=== PATIENT | female | born 1995 | race Caucasian/White ===

== ENCOUNTER 2017-10-31 22:30 | Emergency (ER) | payer SELFPAY ==
[2017-11-01] MEDS ORDERED: HYDROCODONE/ACETAMINOPHEN 5-325 MG TABLET PO ONE (00:20)
--- NOTE | 2017-11-01 00:43 | ER Document Report ---
ED General - General Chief Complaint: Abdominal Pain Stated Complaint: ABDOMINAL PAIN Time Seen by Provider: 11/01/17 00:10 Notes: Patient is a 22-year-old female presents with complaint of abdominal pain and some darker, discharge from vaginal area. She says it looks more like old blood. She says her menstrual periods are very regular. She says sometimes she has severe pain in her lower pelvic region whenever she has her periods. She says it feels like that except worse than typical. No vomiting. No diarrhea. No fevers. No recent injuries or traumas to the abdomen. She says that she may have had a miscarriage back in July. She did not follow-up after this. She has not recently checked a test. No other complaints at this time. TRAVEL OUTSIDE OF THE [place] IN LAST 30 DAYS: No - Related Data Allergies/Adverse Reactions: No Known Allergies Allergy (Unverified 03/28/16 22:13) Past Medical History - Social History Smoking Status: Unknown if Ever Smoked Frequency of alcohol use: None Drug Abuse: None Family History: Reviewed & Not Pertinent - Immunizations Hx Diphtheria, Pertussis, Tetanus Vaccination: Yes Review of Systems - Review of Systems Notes: My Normal Review Basic REVIEW OF SYSTEMS: CONSTITUTIONAL : Denies fever, chills, or sweats. Denies recent illness. RESPIRATORY: Denies cough, cold, or chest congestion. Denies shortness of breath, difficulty breathing, or wheezing. GASTROINTESTINAL: Lower abdominal cramping. GENITOURINARY: Some dysuria. FEMALE GENITOURINARY: Pelvic pain. MUSCULOSKELETAL: Denies neck or back pain or joint pain or swelling. SKIN: Denies rash or skin lesions. NEUROLOGICAL: Denies altered mental status or loss of consciousness. Denies headache. Denies weakness or paralysis or loss of use of either side. Denies problems with gait or speech. Denies sensory or motor loss. ALL OTHER SYSTEMS REVIEWED AND NEGATIVE. Physical Exam - Vital signs Vitals: Temp Pulse Resp BP Pulse Ox 98.6 F 75 16 122/74 100 10/31/17 23:47 10/31/17 23:47 10/31/17 23:47 10/31/17 23:47 10/31/17 23:47 - Notes Notes: General Appearance: Well nourished, alert, cooperative, no acute distress, mild to moderate obvious discomfort. Vitals: reviewed, See vital signs table. Eyes: PERRL, EOMI, Conjuctiva clear Mouth: No decreasd moisture Lungs: No wheezing, No rales, No rhonci, No accessory muscle use, good air exchange bilaterally. Heart: Normal rate, Regular rythm, No murmur, no rub Abdomen: Normal BS, soft, No rigidity, mild to moderate lower abdomen to pelvic region pain to palpation. No rebound. No peritoneal signs. Exam: Normal external genitalia. No discharge from vaginal vault. No blood in vaginal vault. Mild pain during exam. Extremities: strength 5/5 in all extremities, good pulses in all extremities, no swelling or tenderness in the extremities, no edema. Skin: warm, dry, appropriate color, no rash Neuro: speech clear, oriented x 3, normal affect, responds appropriately to questions. Course - Re-evaluation Re-evalutation: 11/01/17 02:[address] Amaya, green [employer] consultant and reviewed the results of the ultrasound with him. He requested obtain a CBC. Her white count is less than 12 and he would treat this as an outpatient. I will obtain a CBC to see if she has a leukocytosis. 11/01/17 03:[address] Amaya informed him that the patient's white blood cell count was 12.3. She is positive for chlamydia. Dr. Amaya says he feels that she is still a candidate for outpatient treatment. He says currently she does not need surgical intervention and that she can have antibiotics. Patient's vital signs and pain are well controlled. She looks well on exam. She is not clinically septic appearing. She has no peritoneal signs on abdominal exam. At this time I am okay with outpatient treatment but I informed patient that she is have a very low threshold to follow-up closely [facility] I informed her to call the office this morning to make a follow-up appointment for tomorrow. She is agreeable to this. I informed her that she must take her medications. I informed her that sometimes these abscesses can become worse and if so she must return to ER immediately if she has worsening abdominal pain, fevers, feels like her heart is beating fast, or she feels unwell. Patient agrees with plan will be discharged home. I did explain to the patient and her significant other in the room the results and inform the significant other that he needs to be tested and treated as well. He says he will go to the health department to get tested and treated. Dictation of this chart was performed using voice recognition software; therefore, there may be some unintended grammatical errors. 11/01/17 03:57 - Vital Signs Vital signs: Temp Pulse Resp BP Pulse Ox 98.6 F 75 16 122/74 100 10/31/17 23:47 10/31/17 23:47 10/31/17 23:47 10/31/17 23:47 10/31/17 23:47 - Laboratory Result Diagrams: 11/01/17 03:05 Laboratory results interpreted by me: 11/01/17 11/01/17 11/01/17 00:12 02:20 03:05 WBC 12.3 H Urine Urobilinogen 4.0 H Ur Leukocyte Esterase TRACE H Chlamydia DNA (PCR) DETECTED H Discharge - Discharge Clinical Impression: Tubo-ovarian abscess Condition: Good Disposition: HOME, SELF-CARE Additional Instructions: You have a small abscess in the pelvis most likely related to your chlamydia infection. We gave you a dose of an antibiotic thru the IV in the ER. You will be placed on 2 other antibiotics to take over the next 10 days. [facility]. The number for this clinic is under the name "Dr. Amaya" on the discharge paperwork. Please call the office this morning to make the follow up appointment. Sometimes these infections can worsen and eventually require surgery. You must have a very low threshold to return to the ER immediately if you have worsening pain, fevers, feel as if your heart is beating fast, or if you feel that you are worsening in any way. Prescriptions: Doxycycline Hyclate 100 mg PO BID #20 capsule Metronidazole [Flagyl 500 mg Tablet] 500 mg PO Q6H #40 tablet Forms: Return to Work Referrals: SHADY AMAYA MD [ACTIVE STAFF] - 11/02/17
[2017-11-01 01:29] LABS: T.VAGINALIS (WET MOUNT) NO TRICHOMONAS SEEN; WBCS (WET MOUNT) RARE WBCS SEEN; YEAST (WET MOUNT) NO YEAST SEEN
[2017-11-01 01:30] LABS: BACTERIA (WET MOUNT) 4+ BACTERIA SEEN; RBCS (WET MOUNT) NO RBCS SEEN
--- NOTE | 2017-11-01 02:17 | RADIOLOGY REPORT (SQ) ---
EXAM DESCRIPTION: U/S NON OB PEL TV W/DOPPLER CLINICAL HISTORY: 22 years Female, pelvic pain COMPARISON: 03/28/2016 TECHNIQUE: Complete pelvic ultrasound with transvaginal imaging. Limited color and spectral Doppler imaging of the ovaries. FINDINGS: The uterus measures 6.3 x 4.1 x 3.3 cm. Endometrial thickness of 1.0 cm. Cervical length of 1.3 cm and closed. No abnormalities of the myometrium. Small amount of free fluid in the pelvis. In the right adnexa there is an ovoid structure with increased through transmission which may represent a fluid-filled fallopian tube with complex fluid. This structure measures 5.0 cm in greatest dimension. The right ovary measures 4.2 x 4.0 x 3.5 cm. The left ovary measures 3.6 x 1.6 x 2.4 cm. Arterial and venous blood flow noted in the ovaries bilaterally. IMPRESSION: 1. In the right adnexa there is an ovoid structure which appears to be filled with complex fluid likely representing a dilated fallopian tube. This could represent pyosalpinx or hematosalpinx. CT of the pelvis may could provide additional characterization. 2. Small amount of free pelvic fluid.
[2017-11-01 02:41] LABS: APPEARANCE,URINE CLOUDY; BILIRUBIN,URINE NEGATIVE (NEGATIVE); COLOR,URINE YELLOW; GLUCOSE, URINE NEGATIVE (NEGATIVE); KETONES,URINE NEGATIVE (NEGATIVE); LEUKOCYTE ESTERASE,URINE TRACE (NEGATIVE); NITRITE,URINE NEGATIVE (NEGATIVE); PROTEIN,URINE NEGATIVE (NEGATIVE); URINE SPECIFIC GRAVITY 1.021
[2017-11-01] MEDS ORDERED: CEFTRIAXONE INJ 1000 MG VIAL IV ONE (02:52)
[2017-11-01 02:56] LABS: CHLAM PCR DETECTED (NOT DETECT); GON PCR NOT DETECTED (NOT DETECT)
[2017-11-01 03:27] LABS: ABSOLUTE BASOPHILS # (AUTO) 0.1 10^3/uL (0.0-0.2); ABSOLUTE EOSINOPHILS # (AUTO) 0.4 10^3/uL (0.0-0.6); ABSOLUTE LYMPHOCYTES (AUTO) 4.3 10^3/uL (0.5-4.7); ABSOLUTE MONOCYTES (AUTO) 1.1 10^3/uL (0.1-1.4); ABSOLUTE NEUT (AUTO) 6.5 10^3/uL (1.7-8.2); BASOPHILS % (AUTO) 0.9 % (0-2); EOSINOPHILS % (AUTO) 3.2 % (0-6); HEMATOCRIT 40.1 % (36.0-47.0); HEMOGLOBIN 13.5 g/dL (12.0-15.5); LYMPHOCYTES % (AUTO) 34.6 % (13-45); MEAN CORPUSCULAR HEMOGLOBIN 30.7 pg (27.0-33.4); MEAN CORPUSCULAR HGB CONC 33.5 g/dL (32.0-36.0); MEAN CORPUSCULAR VOLUME 91 fl (80-97); MONOCYTES % (AUTO) 8.5 % (3-13); PLATELET COUNT 368 10^3/uL (150-450); RED BLOOD COUNT 4.39 10^6/uL (3.72-5.28); SEGMENTED NEUTROPHILS % (AUTO) 52.8 % (42-78); TOTAL CELLS COUNTED % (AUTO) 100 %; WHITE BLOOD COUNT 12.3 10^3/uL (4.0-10.5)
[2017-11-01] MEDS ORDERED: DOXYCYCLINE HYCLATE 100 MG TABLET PO ONE (03:36)
[2017-11-01] MEDS ORDERED: METRONIDAZOLE 500 MG TABLET PO ONE (03:39)
[2017-11-01] MEDS ORDERED: HYDROCODONE/ACETAMINOPHEN 5-325 MG (6 TAB/ER DISP) PO PRN (03:43)
[2017-11-01 04:32] VITALS: BP 117/66
== END 2017-11-01 04:05 | disposition home or self-care (01) ==
LOC: ER 22:30
DX: A56.11 Chlamydial female pelvic inflammatory disease (principal); R10.2 Pelvic and perineal pain; R30.0 Dysuria
CPT/HCPCS: 99284; 96365; 36415; 87040; 87210; 85025; 81025; 81001; 87491; 87591; 76830; 93976; J0696

== ENCOUNTER 2018-02-26 22:15 | Emergency (ER) | payer MEDICAID ==
[2018-02-26] MEDS ORDERED: NORMAL SALINE 1000 ML 1,000 ML IV ONE (22:32)
--- NOTE | 2018-02-26 22:33 | ER Document Report ---
ED General - General Chief Complaint: Overdose Stated Complaint: POSSIBLE OVERDOSE Time Seen by Provider: 02/26/18 22:22 Notes: Patient is a 22-year-old female who says that her and her boyfriend are homeless. She says that her boyfriend has been very depressed and this is also reflected in her being depressed and being that she is homeless she just feels like she is hopeless. Tonight she took a handful of Celexa. She is unsure exactly him the tablets that was. She said she had some nausea but no vomiting. She denies any pain. She denies any other medications. TRAVEL OUTSIDE OF THE [place] IN LAST 30 DAYS: No - Related Data Allergies/Adverse Reactions: No Known Allergies Allergy (Unverified 03/28/16 22:13) Past Medical History - Social History Smoking Status: Never Smoker Frequency of alcohol use: None Drug Abuse: None Family History: Reviewed & Not Pertinent Renal/ Medical History: Denies: Hx Peritoneal Dialysis - Immunizations Hx Diphtheria, Pertussis, Tetanus Vaccination: Yes Review of Systems - Review of Systems Notes: My Normal Review Basic REVIEW OF SYSTEMS: CONSTITUTIONAL : Denies fever, chills, or sweats. Denies recent illness. EENT: Denies eye, ear, throat, or mouth pain or symptoms. Denies nasal or sinus congestion. CARDIOVASCULAR: Palpitation. RESPIRATORY: Denies cough, cold, or chest congestion. Denies shortness of breath, difficulty breathing, or wheezing. GASTROINTESTINAL: Denies abdominal pain. Denies nausea, vomiting, or diarrhea. GENITOURINARY: Denies difficulty urinating, painful urination, burning, frequency, or blood in urine. FEMALE GENITOURINARY: Denies vaginal bleeding, abnormal or irregular periods. MUSCULOSKELETAL: Denies neck or back pain or joint pain or swelling. SKIN: Denies rash or skin lesions.. NEUROLOGICAL: Denies altered mental status or loss of consciousness. Denies headache. Denies weakness or paralysis or loss of use of either side. Denies problems with gait or speech. Denies sensory or motor loss. After: Suicidal ideations and depression. ALL OTHER SYSTEMS REVIEWED AND NEGATIVE. Physical Exam - Vital signs Vitals: Resp Pulse Ox 17 96 02/26/18 22:46 02/26/18 22:46 - Notes Notes: General Appearance: Well nourished, alert, cooperative, no acute distress, no obvious discomfort. Diaphoresis. Vitals: reviewed, See vital signs table. Head: no swelling or tenderness to the head Eyes: PERRL, EOMI, Conjuctiva clear Mouth: No decreasd moisture Throat: No tonsillar inflammation, No airway obstruction, No lymphadenopathy Lungs: No wheezing, No rales, No rhonci, No accessory muscle use, good air exchange bilaterally. Heart: Normal rate, Regular rythm, No murmur, no rub Abdomen: Normal BS, soft, No rigidity, No abdominal tenderness, No guarding, no rebound, no abdominal masses, no organomegaly Extremities: strength 5/5 in all extremities, good pulses in all extremities, no swelling or tenderness in the extremities, no edema. Skin: warm, dry, appropriate color, no rash Neuro: speech clear, oriented x 3, normal affect, responds appropriately to questions. Nerves II through XII are intact. Distal sensation intact. No tremor. Psychiatric: Depressed affect. Course - Re-evaluation Re-evalutation: 02/27/18 04:23 It has been more than 7 hours since she overdosed. She has not had any concerning vital sign changes. She denies any seizures. She has not had any signs of serotonin syndrome. She looks and feels well and has been up walking without any difficulty. I did inform her that the pinky test is positive. Her hCG is only 600. She is likely only a few weeks . She was unaware that she was . She has not had any abdominal pain or vaginal bleeding or abnormal discharge. I told her that when she is eventually discharged from here that she will need to follow-up with an OB doctor and start taking vitamins. I will order vitamins for her to start taking here. Patient is medically stable for psychiatric evaluation. - Vital Signs Vital signs: Temp Pulse Resp BP Pulse Ox 97.7 F 21 H 120/85 95 02/27/18 00:42 02/27/18 01:01 02/27/18 01:01 02/27/18 01:01 - Laboratory Result Diagrams: 02/26/18 22:25 02/26/18 22:25 Laboratory results interpreted by me: 02/26/18 02/26/18 02/26/18 22:25 22:25 22:25 WBC 11.4 H Serum HCG, Qual POSITIVE H Beta HCG, Quant Urine Protein Salicylates < 1.0 L Acetaminophen < 10 L 02/26/18 02/26/18 22:25 22:25 WBC Serum HCG, Qual Beta HCG, Quant 629.14 H Urine Protein 30 H Salicylates Acetaminophen - EKG Interpretation by Me Additional EKG results interpreted by me: 02/26/18 22:32 EKG is reviewed and interpreted by me. EKG shows sinus tachycardia with a rate of [address] segment elevation or depression. No ischemic T-wave inversions. CO interval, QRS duration are within normal range. QTc interval is borderline. Discharge - Discharge Clinical Impression: Suicide attempt Qualifiers: Weeks of gestation: less than 8 weeks Qualified Code(s): Z3A.01 - Less than 8 weeks gestation of Condition: Stable Disposition: PSYCH HOSP/UNIT Additional Instructions: Please take a vitamin every day. Please follow-up with an OB doctor soon as possible for establishment of care. Please return to ER immediately if you have, pain, vaginal bleeding, or feel unwell. Please return to ER immediately if you have recurrent thoughts of suicide. Referrals: BEN GREEN MD [ACTIVE STAFF] - Follow up in 3-5 days
[2018-02-26 22:46] LABS: ABSOLUTE EOSINOPHILS # (AUTO) 0.2 10^3/uL (0.0-0.6); ABSOLUTE LYMPHOCYTES (AUTO) 2.6 10^3/uL (0.5-4.7); ABSOLUTE MONOCYTES (AUTO) 0.7 10^3/uL (0.1-1.4); ABSOLUTE NEUT (AUTO) 7.8 10^3/uL (1.7-8.2); BASOPHILS % (AUTO) 0.4 % (0-2); EOSINOPHILS % (AUTO) 2.2 % (0-6); HEMATOCRIT 40.2 % (36.0-47.0); HEMOGLOBIN 13.9 g/dL (12.0-15.5); LYMPHOCYTES % (AUTO) 22.5 % (13-45); MEAN CORPUSCULAR HEMOGLOBIN 31.7 pg (27.0-33.4); MEAN CORPUSCULAR HGB CONC 34.7 g/dL (32.0-36.0); MEAN CORPUSCULAR VOLUME 91 fl (80-97); MONOCYTES % (AUTO) 6.2 % (3-13); PLATELET COUNT 369 10^3/uL (150-450); RED CELL DISTRIBUTION WIDTH 13.2 % (11.5-14.0); SEGMENTED NEUTROPHILS % (AUTO) 68.7 % (42-78); TOTAL CELLS COUNTED % (AUTO) 100 %; WHITE BLOOD COUNT 11.4 10^3/uL (4.0-10.5)
[2018-02-26 22:53] LABS: APPEARANCE,URINE SLIGHTLY-CLOUDY; BILIRUBIN,URINE NEGATIVE (NEGATIVE); COLOR,URINE YELLOW; GLUCOSE, URINE NEGATIVE (NEGATIVE); KETONES,URINE NEGATIVE (NEGATIVE); LEUKOCYTE ESTERASE,URINE NEGATIVE (NEGATIVE); NITRITE,URINE NEGATIVE (NEGATIVE); PROTEIN,URINE 30 mg/dL (NEGATIVE); URINE SPECIFIC GRAVITY 1.021; UROBILINOGEN,URINE NEGATIVE mg/dL (<2.0)
[2018-02-26 22:59] LABS: URINE BARBITURATES SCREEN NEGATIVE; URINE BENZODIAZEPINES SCREEN NEGATIVE; URINE COCAINE SCREEN NEGATIVE; URINE MARIJUANA (THC) SCREEN UNCONFIRMED POSITIVE; URINE METHADONE SCREEN NEGATIVE; URINE PHENCYCLIDINE SCREEN NEGATIVE
[2018-02-26 23:01] LABS: ACETAMINOPHEN < 10 ug/mL (10-30); ALANINE AMINOTRANSFERASE 34 U/L (9-52); ALBUMIN 4.4 g/dL (3.5-5.0); ALCOHOL < 10 mg/dL (NONE DETECTED); ALKALINE PHOSPHATASE 73 U/L (38-126); ANION GAP 14 (5-19); ASPARTATE AMINO TRANSFERASE 23 U/L (14-36); BILIRUBIN,DIRECT 0.2 mg/dL (0.0-0.4); BILIRUBIN,TOTAL 0.5 mg/dL (0.2-1.3); BLOOD UREA NITROGEN 14 mg/dL (7-20); CALCIUM 9.1 mg/dL (8.4-10.2); CARBON DIOXIDE 22 mmol/L (22-30); CHLORIDE 106 mmol/L (98-107); GLUCOSE 86 mg/dL (75-110); POTASSIUM 3.9 mmol/L (3.6-5.0); SALICYLATE < 1.0 mg/dL (2.0-20.0); SODIUM 141.9 mmol/L (137-145); TOTAL PROTEIN 7.6 g/dL (6.3-8.2)
--- NOTE | 2018-02-27 09:18 | EKG REPORT ---
SEVERITY:- BORDERLINE ECG - SINUS TACHYCARDIA BORDERLINE PROLONGED QT INTERVAL : Confirmed by: Hany Mansfield 27-Feb-2018 09:17:48
[2018-02-27] MEDS ORDERED: PRENATAL VITAMIN W DHA CAPSULE PO SCH (10:00)
--- NOTE | 2018-02-27 10:05 | ER Document Report ---
Doctor's Note Notes: 02/27/18 10:05 Rounds: Chart reviewed and patient interviewed. Patient reportedly took an overdose of Celexa because she was feeling depressed. Says she feels better this morning. Patient reports that she is homeless although there is some relative her in law locally. Vital signs are all normal. Lab studies were all normal. Patient appears to be medically stable for transfer or discharge. Shannon Swartz MD
[2018-02-27 10:27] VITALS: BP 132/84
--- NOTE | 2018-02-27 10:39 | PSYCHOLOGICAL NOTE ---
Psych Note - Psych Note Psych Note: Reason for Consult: suicidal ideation; intentional overdose Consent permissions: none given Patient is a 22-year-old female who says that her and her boyfriend are homeless. She says that her boyfriend has been very depressed and this is also reflected in her being depressed and being that she is homeless she just feels like she is hopeless. Tonight she took a handful of Celexa. Patient disclosed she arrived to [facility] via EMS because she "took pills." She disclosed that those pills are Celexa however they are not her prescription but her friends. She reports that she has been feeling very depressed because she has no job which she identifies as her "main stress." She continued reports that her is also without a job and they have been living with her father -in-law since August. She discloses that she has been suffering from depression since she was a kid on and off. Patient admits that she is still somewhat in shock that she is and trying to wrap her mind around it. Patient reports that she is glad she is alive and confirms she wants to keep the baby. Patient denies any family history of bipolar. She confirms she has had one previous attempt when she was 17 years old which is also taking pills. Patient disclosed she is never been to an outpatient mental health provider. Patient is alert and orientated to person, place, time and circumstance. Mood is euthymic with congruent affect as evidenced by openly engaging with clinician smiling. Patient denies current suicidal ideation and admits to "taking pills" because of depression but reports being glad she is alive. Patient denies homicidal ideation. Delusions are absent behaviors congruent with an intact reality based presentation i.e. organized and linear thought process. Eye contact is well-maintained. Conversational speech was within normal rate, tone and prosody. Intellectual abilities appear to be within the average range. Attention and concentration are fair. Insight, judgment, impulse control are fair. No medication recommendations at this time Diagnosis 311 (F32.9) unspecified depressive disorder V60.0 (Z59.0) homelessness Impression\\plan: Patient is cleared cleared from acute psychiatric services. Patient does not meet IVC criteria per [place] GS 120 2C. Patient denies current suicidal ideation and reports that she is glad she is alive. Patient demonstrates forward thinking and reported that she wants to keep the baby. Patient was unaware of housing assistance in the local area and would like information on this. Clinician provided patient with homeless packet, housing resources, and local mental health providers. Patient is recommended to follow- up with an outpatient mental health provider to improve coping skills. Patient is also recommended to stop using or misusing drugs (patient's toxicology report indicates amphetamines and marijuana). Dr. Valerio was consulted and the care and management this patient; attending physician is agreement with recommendations and disposition.
== END 2018-02-27 10:34 | disposition home or self-care (01) ==
LOC: ER 22:15
DX: O9A.211 Injury, poisoning and certain other consequences of external causes complicating pregnancy, first trimester (principal); T43.222A Poisoning by selective serotonin reuptake inhibitors, intentional self-harm, initial encounter; F32.9 Major depressive disorder, single episode, unspecified; R45.851 Suicidal ideations; Z59.0 Homelessness; Z3A.01 Less than 8 weeks gestation of pregnancy
CPT/HCPCS: 93005; 99285; 96360; 36415; 80307 ×4; 84702; 84703; 85025; 80053; 81001; 93010; J7030

== ENCOUNTER 2018-03-11 17:26 | Emergency (ER) | payer MEDICAID ==
--- NOTE | 2018-03-11 17:45 | ER Document Report ---
ED Medical Screen (RME) - General Chief Complaint: Vag Bleeding, +preg <12wks Stated Complaint: VAGINAL BLEEDING Time Seen by Provider: 03/11/18 17:38 Notes: 22 years old female who is 6 weeks presents today with vaginal spotting and bleeding for the last 4 days. Associated with abdominal cramp. She smokes cigarettes, cannabis, amphetamine TRAVEL OUTSIDE OF THE [place] IN LAST 30 DAYS: No - Related Data Allergies/Adverse Reactions: No Known Allergies Allergy (Verified 03/11/18 17:28) Past Medical History - Social History Chew tobacco use (# tins/day): No Frequency of alcohol use: None Drug Abuse: Marijuana, Methamphetamine Renal/ Medical History: Denies: Hx Peritoneal Dialysis Psychiatric Medical History: Reports: Hx Depression - Immunizations Hx Diphtheria, Pertussis, Tetanus Vaccination: Yes Physical Exam - Vital signs Vitals: Temp Pulse Resp BP Pulse Ox 97.5 F 77 16 105/64 100 03/11/18 17:36 03/11/18 17:36 03/11/18 17:36 03/11/18 17:36 03/11/18 17:36 Course - Vital Signs Vital signs: Temp Pulse Resp BP Pulse Ox 97.5 F 77 16 105/64 100 03/11/18 17:36 03/11/18 17:36 03/11/18 17:36 03/11/18 17:36 03/11/18 17:36
[2018-03-11 18:04] LABS: ABSOLUTE BASOPHILS # (AUTO) 0.1 10^3/uL (0.0-0.2); ABSOLUTE EOSINOPHILS # (AUTO) 0.2 10^3/uL (0.0-0.6); ABSOLUTE LYMPHOCYTES (AUTO) 2.5 10^3/uL (0.5-4.7); ABSOLUTE MONOCYTES (AUTO) 0.5 10^3/uL (0.1-1.4); ABSOLUTE NEUT (AUTO) 5.4 10^3/uL (1.7-8.2); BASOPHILS % (AUTO) 0.7 % (0-2); EOSINOPHILS % (AUTO) 1.9 % (0-6); HEMATOCRIT 38.8 % (36.0-47.0); HEMOGLOBIN 13.4 g/dL (12.0-15.5); LYMPHOCYTES % (AUTO) 28.9 % (13-45); MEAN CORPUSCULAR HEMOGLOBIN 32.1 pg (27.0-33.4); MEAN CORPUSCULAR HGB CONC 34.7 g/dL (32.0-36.0); MEAN CORPUSCULAR VOLUME 93 fl (80-97); MONOCYTES % (AUTO) 6.1 % (3-13); PLATELET COUNT 323 10^3/uL (150-450); RED BLOOD COUNT 4.18 10^6/uL (3.72-5.28); RED CELL DISTRIBUTION WIDTH 13.9 % (11.5-14.0); SEGMENTED NEUTROPHILS % (AUTO) 62.4 % (42-78); TOTAL CELLS COUNTED % (AUTO) 100 %; WHITE BLOOD COUNT 8.6 10^3/uL (4.0-10.5)
[2018-03-11 18:12] LABS: APPEARANCE,URINE SLIGHTLY-CLOUDY; BILIRUBIN,URINE NEGATIVE (NEGATIVE); COLOR,URINE YELLOW; GLUCOSE, URINE NEGATIVE (NEGATIVE); KETONES,URINE NEGATIVE (NEGATIVE); LEUKOCYTE ESTERASE,URINE SMALL (NEGATIVE); NITRITE,URINE NEGATIVE (NEGATIVE); PROTEIN,URINE NEGATIVE (NEGATIVE); URINE SPECIFIC GRAVITY 1.014
--- NOTE | 2018-03-11 18:50 | ER Document Report ---
ED General - General Chief Complaint: Vag Bleeding, +preg <12wks Stated Complaint: VAGINAL BLEEDING Time Seen by Provider: 03/11/18 17:38 Mode of Arrival: Ambulatory Information source: Patient Notes: 22-year-old female with depression presents with complaint of heavy vaginal bleeding that started 3 days prior to arrival. Patient was seen February in the emergency department for an overdose when she was found to be . Her last menstrual period was January 19, 2018. She states that she went to the health department who told her she was approximately 6 weeks . Patient complaining of sharp lower abdominal pain that she describes as intermittent, intense. She has not passed any tissue. Patient denies associated nausea, vomiting. TRAVEL OUTSIDE OF THE [place] IN LAST 30 DAYS: No - HPI Onset: Other Onset/Duration: Gradual, Persistent Quality of pain: Stabbing Severity: Mild Associated symptoms: None Exacerbated by: Denies Relieved by: Denies Similar symptoms previously: No Recently seen / treated by doctor: Yes - February 26, 2018 [facility] - Related Data Allergies/Adverse Reactions: No Known Allergies Allergy (Verified 03/11/18 17:28) Past Medical History - General Information source: Patient, [facility] Records - Social History Smoking Status: Current Every Day Smoker Cigarette use (# per day): Yes - 10 Chew tobacco use (# tins/day): No Smoking Education Provided: Yes - 4 minutes of smoking cessation was provided to the patient. Frequency of alcohol use: None Drug Abuse: Marijuana, Methamphetamine Lives with: Family Family History: Reviewed & Not Pertinent Patient has suicidal ideation: No Patient has homicidal ideation: No Renal/ Medical History: Denies: Hx Peritoneal Dialysis Psychiatric Medical History: Reports: Hx Depression - Immunizations Hx Diphtheria, Pertussis, Tetanus Vaccination: Yes Review of Systems - Review of Systems Notes: REVIEW OF SYSTEMS: CONSTITUTIONAL : Denies fever, chills, or sweats. Denies recent illness. Denies weight loss, recent hospitalizations. EENT: Denies visual changes, eye pain. Denies nasal or sinus congestion or discharge. Denies sore throat, oral lesions, difficulty swallowing. CARDIOVASCULAR: Denies chest pain. Denies palpitations. Denies lower extremity edema. RESPIRATORY: Denies cough, cold, or chest congestion. Denies shortness of breath, wheezing. GASTROINTESTINAL: Denies abdominal distention. Denies nausea, vomiting, or diarrhea. Denies blood in vomitus, stools, or per rectum. Denies black, tarry stools. Denies constipation. GENITOURINARY: Denies difficulty urinating, painful urination, frequency, blood in urine, MUSCULOSKELETAL: Denies back or neck pain or stiffness. Denies joint pain or swelling. SKIN: Denies rash, lesions or sores. HEMATOLOGIC : Denies easy bruising or bleeding. LYMPHATIC: Denies swollen glands. NEUROLOGICAL: Denies confusion or altered mental status. Denies passing out or loss of consciousness. Denies dizziness or lightheadedness. Denies headache. Denies weakness or paralysis. Denies problems difficulty with ambulation, slurred speech. Denies sensory loss, numbness, or tingling. Denies seizures. PSYCHIATRIC: Denies anxiety or stress. Denies depression, suicidal ideation, or homicidal ideation. Denies visual or auditory hallucinations. Physical Exam - Vital signs Vitals: Temp Pulse Resp BP Pulse Ox 97.5 F 77 16 105/64 100 03/11/18 17:36 03/11/18 17:36 03/11/18 17:36 03/11/18 17:36 03/11/18 17:36 - Notes Notes: PHYSICAL EXAMINATION: GENERAL: Well-appearing, well-nourished and in no acute distress. HEAD: Atraumatic, normocephalic. EYES: Pupils equal round and reactive to light, extraocular movements intact, conjunctiva are normal. ENT: Nares patent, oropharynx clear without exudates. Moist mucous membranes. NECK: Normal range of motion, supple without lymphadenopathy LUNGS: Breath sounds clear to auscultation bilaterally and equal. No wheezes rales or rhonchi. HEART: Regular rate and rhythm without murmurs ABDOMEN: Soft, nontender, nondistended abdomen. No guarding, no rebound. No masses appreciated. Female : Mild vaginal bleeding. Os closed. No clots. No cervical motion tenderness, vaginal discharge. Musculoskeletal: Normal range of motion, no pitting or edema. No cyanosis. NEUROLOGICAL: Cranial nerves grossly intact. Normal speech, normal gait. Normal sensory, motor exams PSYCH: Normal mood, normal affect. SKIN: Warm, Dry, normal turgor, no rashes or lesions noted. Course - Re-evaluation Re-evalutation: Laboratory 03/11/18 03/11/1818 17:47 17:50 17:50 WBC 8.6 RBC 4.18 Hgb 13.4 Hct 38.8 MCV 93 MCH 32.1 MCHC 34.7 RDW 13.9 Plt Count 323 Seg Neutrophils % 62.4 Lymphocytes % 28.9 Monocytes % 6.1 Eosinophils % 1.9 Basophils % 0.7 Absolute Neutrophils 5.4 Absolute Lymphocytes 2.5 Absolute Monocytes 0.5 Absolute Eosinophils 0.2 Absolute Basophils 0.1 Beta HCG, Quant 2922.80 H Total Beta HCG POSITIVE Urine Color YELLOW Urine Appearance SLIGHTLY-CLOUDY Urine pH 8.0 Ur Specific [place] 1.014 Urine Protein NEGATIVE Urine Glucose (UA) NEGATIVE Urine Ketones NEGATIVE Urine Blood LARGE H Urine Nitrite NEGATIVE Urine Bilirubin NEGATIVE Urine Urobilinogen 2.0 H Ur Leukocyte Esterase SMALL H Urine WBC (Auto) 8 Urine RBC (Auto) 9 Squamous Epi Cells Auto 16 Urine Mucus (Auto) RARE Urine Ascorbic Acid NEGATIVE Epi Cells (Wet Prep) Bacteria (Wet Prep) Trichomonas (Wet Prep) Vaginal WBC Vaginal RBC Vaginal Yeast Chlamydia DNA (PCR) N.gonorrhoeae DNA (PCR) 03/11/18 03/11/18 19:23 19:23 WBC RBC Hgb Hct MCV MCH MCHC RDW Plt Count Seg Neutrophils % Lymphocytes % Monocytes % Eosinophils % Basophils % Absolute Neutrophils Absolute Lymphocytes Absolute Monocytes Absolute Eosinophils Absolute Basophils Beta HCG, Quant Total Beta HCG Urine Color Urine Appearance Urine pH Ur Specific [place] Urine Protein Urine Glucose (UA) Urine Ketones Urine Blood Urine Nitrite Urine Bilirubin Urine Urobilinogen Ur Leukocyte Esterase Urine WBC (Auto) Urine RBC (Auto) Squamous Epi Cells Auto Urine Mucus (Auto) Urine Ascorbic Acid Epi Cells (Wet Prep) 3+ EPITHELIALS SEEN Bacteria (Wet Prep) 3+ BACTERIA SEEN Trichomonas (Wet Prep) NO TRICHOMONAS SEEN Vaginal WBC FEW WBCS SEEN Vaginal RBC 3+ RBCS SEEN Vaginal Yeast NO YEAST SEEN Chlamydia DNA (PCR) NOT DETECTED N.gonorrhoeae DNA (PCR) NOT DETECTED Transvaginal US 03/11/18 17:43 IMPRESSION: There is a well-formed gestational sac within the upper cervical canal. pole was not seen. Yolk sac is present. EGA 6 weeks 1 day. Follow-up as clinically indicated. Trimester of : First - 0 to 13 weeks. 03/11/18 23:09 22-year-old female with depression presents with complaint of heavy vaginal bleeding that started 3 days prior to arrival. Patient was seen February in the emergency department for an overdose when she was found to be . Her last menstrual period was January 19, 2018. She states that she went to the health department who told her she was approximately 6 weeks . Patient complaining of sharp lower abdominal pain that she describes as intermittent, intense. She has not passed any tissue. Patient denies associated nausea, vomiting. Patient was seen by myself upon arrival. Vital signs were reviewed. Patient is afebrile, normotensive and not hypoxic. Patient does not appear toxic or dehydrated. They are in no acute distress. Previous medical records and nursing notes reviewed. Vaginal ultrasound was obtained and showed a well-formed gestational sac within the upper cervical canal. pole not visualized. Yolk sac is present. Vaginal swabs obtained and consistent with bacterial vaginosis. Patient was given Flagyl during her ED course. She was advised to return in 48 hours for repeat hCG. HCG today was 2200 increased from 600 on the 27th. She was advised that she will need a repeat ultrasound. Urged to return to the emergency department with increased pain, vaginal bleeding or passage of tissue. Patient provided the opportunity to ask questions, and express concerns. Discharge instructions discussed. Patient is agreeable with discharge home. Return indications explained and discussed with the patient who displays understanding. Patient encouraged to return to the emergency department immediately with any concerns. - Vital Signs Vital signs: Temp Pulse Resp BP Pulse Ox 98.5 F 64 16 117/66 100 03/11/18 21:01 03/11/18 21:01 03/11/18 17:36 03/11/18 21:01 03/11/18 21:01 - Laboratory Result Diagrams: 03/11/18 17:50 Laboratory results interpreted by me: 03/11/18 03/11/18 17:47 17:50 Beta HCG, Quant 2922.80 H Urine Blood LARGE H Urine Urobilinogen 2.0 H Ur Leukocyte Esterase SMALL H - Diagnostic Test Radiology reviewed: Image reviewed, Reports reviewed Discharge - Discharge Clinical Impression: Threatened in first trimester, BV (bacterial vaginosis) Abdominal pain Qualifiers: Abdominal location: left lower quadrant Qualified Code(s): R10.32 - Left lower quadrant pain Condition: Good Disposition: HOME, SELF-CARE Instructions: Bleeding During Early ([facility]), Repeat Blood Test ([facility]), Threatened Miscarriage ([facility]) Additional Instructions: Follow up with your physician tomorrow for further care or return to the ED IMMEDIATELY if symptoms worsen or new concerns occur. If you cannot afford to follow up with your primary care physician a list of low cost clinics have been provided at the end of your discharge papers as well. Prescriptions: Nitrofurantoin Monohyd/M-Cryst [Macrobid 100 mg Capsule] 1 tab PO BID #20 capsule Forms: Follow-Up Laboratory Testing Referrals: KRISSY GRIFFITHS PA-C [Primary Care Provider] - [facility]NO [facility]AL [facility]] - Follow up as needed [facility] [Provider Group] - Follow up as needed [facility] [Provider Group] - Follow up as needed
[2018-03-11] MEDS ORDERED: NITROFURANTOIN MONOHYD/M-CRYST 100 MG CAPSULE PO ONE (19:41)
[2018-03-11 19:44] LABS: BACTERIA (WET MOUNT) 3+ BACTERIA SEEN; EPITHELIALS (WET MOUNT) 3+ EPITHELIALS SEEN; RBCS (WET MOUNT) 3+ RBCS SEEN; T.VAGINALIS (WET MOUNT) NO TRICHOMONAS SEEN; WBCS (WET MOUNT) FEW WBCS SEEN; YEAST (WET MOUNT) NO YEAST SEEN
[2018-03-11] MEDS ORDERED: METRONIDAZOLE 500 MG TABLET PO ONE (20:12)
[2018-03-11] MEDS ORDERED: ONDANSETRON 4 MG TAB.RAPDIS PO ONE (20:12)
--- NOTE | 2018-03-11 20:26 | RADIOLOGY REPORT (SQ) ---
EXAM DESCRIPTION: U/S OB TRANSVAG W/DOPPLER COMPLETED DATE/TIME: 03/11/2018 7:36 pm REASON FOR STUDY: 6 weeks with abdominal pain, vaginal bleed COMPARISON: None. TECHNIQUE: Transvaginal static and realtime grayscale images acquired of the pelvis. Additional [place] cted spectral and color Doppler images recorded. All images stored on PACs. [id number] CLINICAL DATES: LMP 01/19/2018. 7 weeks 2 days. LIMITATIONS: None. FINDINGS: FETUS: Living intrauterine . ULTRASOUND EGA: 6 weeks 1 day based on gestational sac size. Gestational sac is quite low in positio n. CRL: Not seen. FHR: Not seen. Beats per minute. SUBCHORIONIC BLEED: No SIZE OF BLEED: Not applicable. UTERUS: No masses or anomalies. CERVICAL LENGTH: 2.3 cm. Closed. RIGHT ADNEXA: Normal ovary with normal vascular flow. 3.5 x 2 x 1.9 cm. No adnexal free fluid. No adnexal masses. LEFT ADNEXA: Normal ovary with normal vascular flow. 3.4 x 2.3 x 1.6 cm. No adnexal free fluid. No adnexal masses. FREE FLUID: Small amount of free fluid in the posterior cul-de-sac. OTHER: No other significant finding. IMPRESSION: There is a well-formed gestational sac within the upper cervical canal. pole was not seen. Yolk sac is present. EGA 6 weeks 1 day. Follow-up as clinically indicated. Trimester of : First - 0 to 13 weeks. TECHNICAL DOCUMENTATION: JOB ID: [id number] [employer]- All Rights Reserved rev Reading location - IP/workstation name: [email or web address]
[2018-03-11 21:03] VITALS: BP 117/66
[2018-03-11 21:04] LABS: CHLAM PCR NOT DETECTED (NOT DETECT); GON PCR NOT DETECTED (NOT DETECT)
== END 2018-03-11 21:02 | disposition home or self-care (01) ==
LOC: ER 17:26
DX: O20.0 Threatened abortion (principal); O23.591 Infection of other part of genital tract in pregnancy, first trimester; B96.89 Other specified bacterial agents as the cause of diseases classified elsewhere; O26.891 Other specified pregnancy related conditions, first trimester; R10.30 Lower abdominal pain, unspecified; O99.331 Smoking (tobacco) complicating pregnancy, first trimester; F17.210 Nicotine dependence, cigarettes, uncomplicated; Z71.6 Tobacco abuse counseling; Z3A.01 Less than 8 weeks gestation of pregnancy
CPT/HCPCS: 99284; 36415; 87210; 84702; 85025; 81001; 87491; 87591; 76817; 93976; S0119; J3490 ×2; J8499

== ENCOUNTER 2018-03-13 21:08 | Emergency (ER) | payer MEDICAID ==
[2018-03-13 22:22] LABS: ABSOLUTE EOSINOPHILS # (AUTO) 0.3 10^3/uL (0.0-0.6); ABSOLUTE LYMPHOCYTES (AUTO) 3.5 10^3/uL (0.5-4.7); ABSOLUTE MONOCYTES (AUTO) 0.6 10^3/uL (0.1-1.4); ABSOLUTE NEUT (AUTO) 4.7 10^3/uL (1.7-8.2); BASOPHILS % (AUTO) 0.5 % (0-2); EOSINOPHILS % (AUTO) 3.7 % (0-6); HEMATOCRIT 39.1 % (36.0-47.0); HEMOGLOBIN 13.3 g/dL (12.0-15.5); LYMPHOCYTES % (AUTO) 37.9 % (13-45); MEAN CORPUSCULAR HEMOGLOBIN 31.9 pg (27.0-33.4); MEAN CORPUSCULAR VOLUME 94 fl (80-97); MONOCYTES % (AUTO) 6.8 % (3-13); PLATELET COUNT 350 10^3/uL (150-450); RED BLOOD COUNT 4.16 10^6/uL (3.72-5.28); RED CELL DISTRIBUTION WIDTH 13.6 % (11.5-14.0); SEGMENTED NEUTROPHILS % (AUTO) 51.1 % (42-78); TOTAL CELLS COUNTED % (AUTO) 100 %; WHITE BLOOD COUNT 9.3 10^3/uL (4.0-10.5)
[2018-03-13 22:31] LABS: AMORPHOUS SEDIMENT,URINE TRACE /HPF; APPEARANCE,URINE TURBID; BILIRUBIN,URINE NEGATIVE (NEGATIVE); COLOR,URINE YELLOW; GLUCOSE, URINE NEGATIVE (NEGATIVE); KETONES,URINE NEGATIVE (NEGATIVE); LEUKOCYTE ESTERASE,URINE NEGATIVE (NEGATIVE); NITRITE,URINE NEGATIVE (NEGATIVE); PROTEIN,URINE NEGATIVE (NEGATIVE); URINE SPECIFIC GRAVITY 1.019
--- NOTE | 2018-03-13 23:23 | ER Document Report ---
ED GI/ - General Chief Complaint: Vaginal Bleeding Stated Complaint: VAGINAL BLEEDING Time Seen by Provider: 03/13/18 23:12 Notes: Patient is a 22-year-old female, at about 6 weeks gestation, that comes emergency department for chief complaint of vaginal bleeding and follow-up. She states that she was seen a couple of days ago, told to return for lab work to help trend and evaluate her . She had an ultrasound performed which showed a 6 week intrauterine gestation without visualized heartbeat. She states that she has continued to bleed since that time, she had mild intermittent cramping, she denies any worsening symptoms. She denies vomiting, fever, or severe pain. TRAVEL OUTSIDE OF THE [place] IN LAST 30 DAYS: No - Related Data Allergies/Adverse Reactions: No Known Allergies Allergy (Verified 03/11/18 17:28) Past Medical History - General Information source: Patient - Social History Smoking Status: Current Every Day Smoker Chew tobacco use (# tins/day): No Frequency of alcohol use: None Drug Abuse: Marijuana Lives with: Spouse/Significant other Family History: Reviewed & Not Pertinent Patient has suicidal ideation: No Patient has homicidal ideation: No Renal/ Medical History: Denies: Hx Peritoneal Dialysis Psychiatric Medical History: Reports: Hx Depression Surgical Hx: Negative - Immunizations Hx Diphtheria, Pertussis, Tetanus Vaccination: Yes Review of Systems - Review of Systems Constitutional: No symptoms reported EENT: No symptoms reported Cardiovascular: No symptoms reported Respiratory: No symptoms reported Gastrointestinal: See HPI Genitourinary: See HPI Female Genitourinary: See HPI Musculoskeletal: No symptoms reported Skin: No symptoms reported Hematologic/Lymphatic: No symptoms reported Neurological/Psychological: No symptoms reported Physical Exam - Vital signs Vitals: Temp Pulse Resp BP Pulse Ox 99.1 F 73 14 118/61 100 03/13/18 21:16 03/13/18 21:16 03/13/18 21:16 03/13/18 21:16 03/13/18 21:16 - Notes Notes: GENERAL: Alert, interacts well. No acute distress. HEAD: Normocephalic, atraumatic. EYES: Pupils equal, round, and reactive to light. Extraocular movements intact. ENT: Oral mucosa moist, tongue midline. NECK: Full range of motion. Supple. Trachea midline. LUNGS: Clear to auscultation bilaterally, no wheezes, rales, or rhonchi. No respiratory distress. HEART: Regular rate and rhythm. No murmur ABDOMEN: Soft, non-tender. Non-distended. Bowel sounds present in all 4 quadrants. EXTREMITIES: Moves all 4 extremities spontaneously. No edema, normal radial and dorsalis pedis pulses bilaterally. No cyanosis. BACK: no cervical, thoracic, lumbar midline tenderness. No saddle anesthesia, normal distal neurovascular exam. NEUROLOGICAL: Alert and oriented x3. Normal speech. [cranial nerves II through XII grossly intact]. PSYCH: Normal affect, actually in a pleasant mood SKIN: Warm, dry, normal turgor. No rashes or lesions noted. Course - Re-evaluation Re-evalutation: Patient alert and well-appearing. She is here for repeat laboratory tests. Unfortunately hCG is downtrending. Consistent with impending miscarriage. Patient with minimal bleeding reported today, checked blood type last time and RhoGam not indicated, laboratory workup today unremarkable. Vital signs unremarkable. Discussed results with patient in detail. Patient on face, states this is what she was expecting and prepared for. She does have a history of depression but she denies any concerns about going home, denies suicidal or homicidal ideations , states that she has support and she will be fine. Discussed details of miscarriage, she declines any pain medication, she states she has had this before and she knows what to expect. She states that she will call [facility] tomorrow for close follow-up. Discussed return precautions, patient states understanding and agreement. - Vital Signs Vital signs: Temp Pulse Resp BP Pulse Ox 98.4 F 69 18 117/70 100 03/13/18 23:25 03/13/18 23:25 03/13/18 23:25 03/13/18 23:25 03/13/18 23:25 - Laboratory Result Diagrams: 03/13/18 21:50 Laboratory results interpreted by me: 03/13/18 03/13/18 21:50 21:50 Beta HCG, Quant 2328.70 H Urine Blood MODERATE H Urine Urobilinogen 2.0 H Discharge - Discharge Clinical Impression: Vaginal bleeding affecting early Condition: Stable Disposition: HOME, SELF-CARE Additional Instructions: You have been evaluated for a possible miscarriage. At this time, it appears that the fetus has stopped growing. A miscarriage occurs when the fetus is abnormal. There is no medicine or treatment to prevent it. If bleeding is not severe, and if your pain can be controlled with medicine, you could complete the miscarriage at home. If that's not practical, or if the miscarriage doesn't progress spontaneously, you may need a D&C procedure. Call the referral listed for close followup. You should rest in bed. Do not douche or have sex for at least a week, or until OK'd by the doctor. If you believe you've passed the fetus, collect it in a zip-lock plastic bag. Be sure to follow up with your doctor. Call the doctor or return for re- examination if there is an increase in bleeding or cramping, extreme weakness, fainting, fever, or passage of tissue. Referrals: [facility] [Provider Group] - Follow up tomorrow
[2018-03-13 23:27] VITALS: BP 117/70
== END 2018-03-13 23:30 | disposition home or self-care (01) ==
LOC: ER 21:08
DX: O46.91 Antepartum hemorrhage, unspecified, first trimester (principal); O99.331 Smoking (tobacco) complicating pregnancy, first trimester; Z3A.01 Less than 8 weeks gestation of pregnancy
CPT/HCPCS: 36415; 81001; 84702; 85025; 86900; 86901; 99284

== ENCOUNTER 2018-04-11 17:18 | Emergency (ER) | payer MEDICAID ==
[2018-04-11 17:23] VITALS: BP 121/70
[2018-04-11] MEDS ORDERED: DEXAMETHASONE SOD PHOS INJ 10 MG/1 ML VIAL IM ONE (17:52)
[2018-04-11] MEDS ORDERED: IBUPROFEN SUSP 100 MG/5 ML ORAL SYRINGE PO ONE (17:53)
--- NOTE | 2018-04-11 17:59 | ER Document Report ---
ED ENT - General Chief Complaint: Sore Throat Stated Complaint: SORE THROAT, SWELLING Time Seen by Provider: 04/11/18 17:51 Mode of Arrival: Ambulatory Information source: Patient Notes: 23-year-old female presents to ED for complaint of sore throat headache and fever for the last 2 days. She states that she is having trouble swallowing her drinks. She states she is able to still swallow. TRAVEL OUTSIDE OF THE [place] IN LAST 30 DAYS: No - HPI Patient complains to provider of: Throat problem Onset: Yesterday Onset/Duration: Gradual, Worse Quality of pain: Sharp, Stabbing Severity: Severe Pain Level: 5 Context: Recent Illness Location of pain: Throat Associated symptoms: Headache, Sore throat, Swollen glands Similar symptoms previously: Yes Recently seen / treated by doctor: No - Related Data Allergies/Adverse Reactions: No Known Allergies Allergy (Verified 04/11/18 17:20) Past Medical History - General Information source: Patient - Social History Smoking Status: Current Every Day Smoker Cigarette use (# per day): Yes - 1/2-1 pack per day Chew tobacco use (# tins/day): No Smoking Education Provided: Yes - 4 minutes Frequency of alcohol use: None Drug Abuse: Marijuana Lives with: Family Family History: Reviewed & Not Pertinent Patient has suicidal ideation: No Patient has homicidal ideation: No - Past Medical History Cardiac Medical History: Reports: None Pulmonary Medical History: Reports: None EENT Medical History: Reports: None Neurological Medical History: Reports: Hx Seizures Endocrine Medical History: Reports: None Renal/ Medical History: Reports: None Malignancy Medical History: Reports: None GI Medical History: Reports: None Musculoskeletal Medical History: Reports None Skin Medical History: Reports None Psychiatric Medical History: Reports: Hx Anxiety, Hx Depression, Hx Obsessive Compulsive Disorder, Hx Post Traumatic Stress Disorder Traumatic Medical History: Reports: None Infectious Medical History: Reports: None Surgical Hx: Negative Past Surgical History: Reports: None - Immunizations Hx Diphtheria, Pertussis, Tetanus Vaccination: Yes Review of Systems - Review of Systems Constitutional: Chills, Fever, Recent illness EENT: Throat pain, Difficulty swallowing Cardiovascular: No symptoms reported Respiratory: No symptoms reported Gastrointestinal: No symptoms reported Genitourinary: No symptoms reported Female Genitourinary: No symptoms reported Musculoskeletal: No symptoms reported Skin: No symptoms reported Hematologic/Lymphatic: No symptoms reported Neurological/Psychological: Headaches Physical Exam - Vital signs Vitals: Temp Pulse Resp BP Pulse Ox 99.8 F 113 H 16 121/70 96 04/11/18 17:22 04/11/18 17:22 04/11/18 17:22 04/11/18 17:22 04/11/18 17:22 Interpretation: Normal - General General appearance: Appears well, Alert - HEENT Head: Normocephalic, Atraumatic Eyes: Normal Pupils: PERRL Ears: Normal External canal: Normal Tympanic membrane: Normal Sinus: Normal Nasal: Normal Mouth/Lips: Normal Mucous membranes: Normal Pharynx: Erythema, Exudate, Tonsillar hypertrophy Neck: Anterior cervical chain - Respiratory Respiratory status: No respiratory distress Chest status: Nontender Breath sounds: Normal Chest palpation: Normal - Cardiovascular Rhythm: Regular Heart sounds: Normal auscultation Murmur: No - Abdominal Inspection: Normal Distension: No distension Bowel sounds: Normal Tenderness: Nontender Organomegaly: No organomegaly - Back Back: Normal, Nontender - Extremities General upper extremity: Normal inspection, Nontender, Normal color, Normal ROM , Normal temperature General lower extremity: Normal inspection, Nontender, Normal color, Normal ROM , Normal temperature, Normal weight bearing. No: Jane's sign - Neurological Neuro grossly intact: Yes Cognition: Normal Orientation: AAOx4 [place] Coma Scale Eye Opening: Spontaneous [place] Coma Scale Verbal: Oriented [place] Coma Scale Motor: Obeys Commands Aries Coma Scale Total: 15 Speech: Normal Motor strength normal: LUE, RUE, LLE, RLE Sensory: Normal - Psychological Associated symptoms: Normal affect, Normal mood - Skin Skin Temperature: Warm Skin Moisture: Dry Skin Color: Normal Course - Re-evaluation Re-evalutation: 04/11/18 18:47 Strep and mono results have been discussed with patient. Patient has been treated with Decadron 10 mg IM, ibuprofen 600 mg p.o., and penicillin G1 0.2 million units for his strep throat. Patient will be discharged home to follow- up with her primary doctor. - Vital Signs Vital signs: Temp Pulse Resp BP Pulse Ox 99.8 F 113 H 16 121/70 96 04/11/18 17:22 04/11/18 17:22 04/11/18 17:22 04/11/18 17:22 04/11/18 17:22 Discharge - Discharge Clinical Impression: Strep pharyngitis Condition: Stable Disposition: HOME, SELF-CARE Instructions: Use of Dreb-Vun-Jxwpvip Ibuprofen ([facility]) Additional Instructions: STREP THROAT: Your sore throat is due to the streptococcus germ (strep throat). Strep throat usually makes you feel quite ill with fever and aches, headache, swollen sore throat, and tender bumps under the angles of the jaw. Strep throat requires antibiotic treatment. Although the sore throat may go away by itself, complications such as rheumatic fever, kidney disease, or throat abscess can occur. We usually prescribe antibiotics by mouth. Be sure to take the medicine until it's gone. If you stop early, the strep may come back. If you are vomiting, are severely ill, or can't remember to take pills, we can give you an antibiotic shot. Take acetaminophen or ibuprofen for pain and fever. Sip frequent clear liquids, or use popsicles or ice chips. Anesthetic sprays or lozenges may help. Make sure the air in the room is not too dry. Avoid using decongestants or antihistamines. Call the doctor if there is no improvement in three days, or if you have difficulty breathing, increasing throat pain, high fever, rash, or frequent vomiting. Penicillins The antibiotic you have received is a member of the penicillin family. This is a very useful class of antibiotics. The particular type of antibiotic chosen for you was determined by the nature of your problem. Penicillins are absorbed best when taken on an empty stomach, and should be taken either a half hour before or two hours after a meal. Some newer medicines of the penicillin class are better taken with food -- if this is the case, the pharmacist will label the medicine to alert you. Penicillins usually have no side effects. However, allergy to penicillins is common. If you have had an allergic reaction to any drug of the penicillin family, you should never take any other penicillin. Notify your doctor at once if you develop hives, itching, swelling, faintness, or shortness of breath. Less serious side effects can include nausea or diarrhea. STEROID MEDICATION: You have been given a medicine of the cortisone/steroid class. This medication is used to control inflammation or allergy. It is usually only given for a short period of time, until the acute process subsides. There are usually no side effects from short-term use of cortisone-like medications. Some persons feel an increased sense of well-being and are not sleepy at bedtime. Long-term use of cortisone medications is best avoided, unless required for a severe condition. If your condition does not remit, or relapses after the course of corticosteroid medication, you should consult your physician. FOLLOW-UP CARE: If you have been referred to a physician for follow-up care, call the physician s office for an appointment as you were instructed or within the next two days. If you experience worsening or a significant change in your symptoms, notify the physician immediately or return to the Emergency Department at any time for re-evaluation. Referrals: KRISSY GRIFFITHS PA-C [Primary Care Provider] - Follow up as needed
[2018-04-11] MEDS ORDERED: PENICILLIN G BENZATHINE 1.2 MILLION UNIT/2 ML DISP.SYRIN IM ONE (18:32)
== END 2018-04-11 19:04 | disposition home or self-care (01) ==
LOC: ER 17:18
DX: J02.0 Streptococcal pharyngitis (principal); R51 Headache; R50.9 Fever, unspecified; R13.10 Dysphagia, unspecified; F17.210 Nicotine dependence, cigarettes, uncomplicated; Z71.6 Tobacco abuse counseling
CPT/HCPCS: 99406; 99283; 96372; 36415; 87880; 86308; J3490; J0561; J1100

== ENCOUNTER 2018-09-11 11:37 | Emergency (ER) | payer SELFPAY ==
--- NOTE | 2018-09-11 13:38 | ER Document Report ---
ED ENT - General Chief Complaint: Sore Throat Stated Complaint: SORE THROAT Time Seen by Provider: 09/11/18 12:56 Primary Care Provider: KRISSY GRIFFITHS PA-C [Primary Care Provider] - Follow up as needed Notes: 23-year-old female presents with 2 days of sore throat muscle aches. The patient claims of burning pain in her throat which hurts when she swallows she complains of muscle aches. She has a bit of a headache and runny nose. Feels congested. Denies chest pain denies shortness of breath denies abdominal pain has had some mild nausea. Complains of severe aching throat discomfort upon swallowing. TRAVEL OUTSIDE OF THE [place] IN LAST 30 DAYS: No - Related Data Allergies/Adverse Reactions: No Known Allergies Allergy (Verified 04/11/18 17:20) Past Medical History - Social History Smoking Status: Unknown if Ever Smoked Family History: Reviewed & Not Pertinent Patient has suicidal ideation: No Patient has homicidal ideation: No Neurological Medical History: Reports: Hx Seizures Renal/ Medical History: Denies: Hx Peritoneal Dialysis Psychiatric Medical History: Reports: Hx Anxiety, Hx Depression, Hx Obsessive Compulsive Disorder, Hx Post Traumatic Stress Disorder - Immunizations Hx Diphtheria, Pertussis, Tetanus Vaccination: Yes Review of Systems - Review of Systems Constitutional: Chills, Fever EENT: Nose congestion, Throat pain. denies: Blurred vision Cardiovascular: denies: Chest pain, Heart racing, Orthopnea, Dyspnea Respiratory: Cough. denies: Short of breath, Sputum Gastrointestinal: Nausea. denies: Diarrhea, Vomiting, Constipation Genitourinary: denies: Dysuria, Hematuria Neurological/Psychological: Headaches. denies: Numbness, Tingling -: Yes All other systems reviewed and negative Physical Exam - Vital signs Vitals: Temp Pulse Resp BP Pulse Ox 99.0 F 105 H 20 117/69 98 09/11/18 11:45 09/11/18 11:45 09/11/18 11:45 09/11/18 11:45 09/11/18 11:45 - Notes Notes: GENERAL_APPEARANCE: well_nourished, alert, cooperative, no_acute_distress, no_obvious_discomfort. VITALS: reviewed, see vital signs table. HEAD: no_swelling\tenderness on the head. EYES: PERRL, EOMI, conjunctiva_clear. NOSE: Clear_nasal_discharge. Turbinate inflammation MOUTH: (-)decreased moisture. THROAT: Moderate_tonsilar_inflammation, scant exudates, no_airway_obstruction. Positive_lymphadenopathy NECK: supple, no_neck_tenderness, (-)thyromegaly. no Meningismus BACK: no_back_tenderness. CHEST_WALL: no_chest_tenderness. LUNGS: no_wheezing, no_rales, no_rhonchi, (-)accessory muscle use, good air exchange bilateral. HEART: normal_rate, normal_rhythm, normal_S1, normal_S2, (-)S3, (-)S4, no_mu rmur, no_rub. ABDOMEN: normal_BS, soft, no_abd_tenderness, (-)guarding, (-)rebound, no_organomegaly, no_abd_masses. EXTREMITIES: good pulses in all_extremities, no_swelling\tenderness in the extremities, no_edema. SKIN: warm, dry, good_color, no_rash. No purpura petechiae MENTAL_STATUS: speech_clear, oriented_X_3, normal_affect, responds_appropriately to questions. NEURO: Neg Motor or Sensory Deficits on exam, CN 2-12 intact, DTR 2+ symmetric x 4, No cerbellar signs Course - Re-evaluation Re-evalutation: 09/11/18 13:37 23-year-old female presents with sore throat we will swab her for flu and strep. We will also check a mono test. 09/11/18 15:11 Rapid strep, flu and mono were negative. The rest of the blood work was within acceptable limits. This could be early mono that has not seroconverted yet. However with the tonsils and the lymphadenopathy I think it would empirically treat the patient. I spoke with him about this if they do not improve in 24-48 hours to have him return to the ER. She has no drooling or stridor no asymmetry or anything to suggest abscess at this time. - Vital Signs Vital signs: Temp Pulse Resp BP Pulse Ox 99.0 F 105 H 20 117/69 98 09/11/18 11:45 09/11/18 11:45 09/11/18 11:45 09/11/18 11:45 09/11/18 11:45 - Laboratory Result Diagrams: 09/11/18 14:10 09/11/18 14:10 Laboratory results interpreted by me: 09/11/18 09/11/18 14:10 14:10 WBC 11.4 H Absolute Monocytes 1.5 H Sodium 136.8 L Glucose 113 H Discharge - Discharge Clinical Impression: Tonsillitis Condition: Good Disposition: HOME, SELF-CARE Instructions: Amoxicillin ([facility]), Tonsillitis ([facility]) Prescriptions: Amoxicillin Trihydrate [Amoxil 500 mg Capsule] 500 mg PO TID #30 cap Referrals: KRISSY GRIFFITHS PA-C [Primary Care Provider] - Follow up as needed
[2018-09-11 14:31] LABS: ABSOLUTE LYMPHOCYTES (AUTO) 2.4 10^3/uL (0.5-4.7); ABSOLUTE MONOCYTES (AUTO) 1.5 10^3/uL (0.1-1.4); ABSOLUTE NEUT (AUTO) 7.5 10^3/uL (1.7-8.2); BASOPHILS % (AUTO) 0.3 % (0-2); HEMATOCRIT 40.7 % (36.0-47.0); HEMOGLOBIN 14.2 g/dL (12.0-15.5); MEAN CORPUSCULAR HEMOGLOBIN 31.8 pg (27.0-33.4); MEAN CORPUSCULAR HGB CONC 34.8 g/dL (32.0-36.0); MEAN CORPUSCULAR VOLUME 91 fl (80-97); MONOCYTES % (AUTO) 12.8 % (3-13); PLATELET COUNT 235 10^3/uL (150-450); RED BLOOD COUNT 4.46 10^6/uL (3.72-5.28); RED CELL DISTRIBUTION WIDTH 13.5 % (11.5-14.0); SEGMENTED NEUTROPHILS % (AUTO) 65.9 % (42-78); TOTAL CELLS COUNTED % (AUTO) 100 %; WHITE BLOOD COUNT 11.4 10^3/uL (4.0-10.5)
[2018-09-11 14:47] LABS: A TYPE INFLUENZA AG NEGATIVE (NEGATIVE); B INFLUENZA AG NEGATIVE (NEGATIVE)
[2018-09-11 14:54] LABS: ANION GAP 12 (5-19); BLOOD UREA NITROGEN 8 mg/dL (7-20); CALCIUM 9.3 mg/dL (8.4-10.2); CARBON DIOXIDE 27 mmol/L (22-30); CHLORIDE 98 mmol/L (98-107); GLUCOSE 113 mg/dL (75-110); POTASSIUM 4.3 mmol/L (3.6-5.0); SODIUM 136.8 mmol/L (137-145)
[2018-09-11 15:19] VITALS: BP 101/56
== END 2018-09-11 15:20 | disposition home or self-care (01) ==
LOC: ER 11:37
DX: J03.90 Acute tonsillitis, unspecified (principal); M79.10 Myalgia, unspecified site; R51 Headache; R09.89 Other specified symptoms and signs involving the circulatory and respiratory systems; R11.0 Nausea; R50.9 Fever, unspecified; R09.81 Nasal congestion; R05 Cough
CPT/HCPCS: 36415; 80048; 85025; 86308; 87070; 87804; 87880; 99283

== ENCOUNTER 2018-11-07 21:53 | Emergency (ER) | payer SELFPAY ==
[2018-11-07 22:03] VITALS: BP 128/71
[2018-11-07] MEDS ORDERED: AZITHROMYCIN 250 MG TABLET PO ONE (23:56)
[2018-11-07] MEDS ORDERED: LIDOCAINE 1% INJ-PF (10 MG/ML) 30 ML SDV INJ ONE (23:56)
[2018-11-07] MEDS ORDERED: CEFTRIAXONE INJ 250 MG VIAL IM ONE (23:56)
--- NOTE | 2018-11-08 00:02 | ER Document Report ---
HPI - HPI Time Seen by Provider: 11/07/18 23:51 Pain Level: 3 Notes: Patient is a 23-year-old female with a history of drug abuse with last use methamphetamine 2 days ago by injection who presents emergency department requesting labs, EKG, and drug testing to be performed for placement to a detox facility. Patient states that no facility will take her until she gets this stuff performed., But has not noticed any vaginal bleeding, odor, or discharge. Patient states that she has been feeling well without any other patient would also like STD testing concerns or complaints. She is eating and drinking without difficulties. She is urinating normally and having normal bowel movements. Patient just finished her menstrual cycle recently. Denies drug allergies. No other concerns or complaints. Patient states that she wants everything obtained, but does not want to wait for any results and wants to go home after. Denies any headache, fever, neck pain, changes in vision/speech/mentation/hearing, URI, sore throat, chest pain, palpitations, syncope, cough, shortness of breath, wheeze, dyspnea, abdominal pain, nausea/vomiting/diarrhea, urinary retention, dysuria, hematuria, loss of control of bowel or bladder, numbness/tingling, saddle anesthesia, muscle paralysis/weakness, or rash. - ROS Systems Reviewed and Negative: Yes All other systems reviewed and negative - REPRODUCTIVE Reproductive: DENIES: : Past Medical History - Social History Smoking Status: Current Every Day Smoker Family History: Reviewed & Not Pertinent Neurological Medical History: Reports: Hx Seizures Renal/ Medical History: Denies: Hx Peritoneal Dialysis Psychiatric Medical History: Reports: Hx Anxiety, Hx Depression, Hx Obsessive Compulsive Disorder, Hx Post Traumatic Stress Disorder - Immunizations Hx Diphtheria, Pertussis, Tetanus Vaccination: Yes Vertical Provider Document - CONSTITUTIONAL Agree With Documented VS: Yes Notes: PHYSICAL EXAMINATION: GENERAL: Well-appearing, well-nourished and in no acute distress. A&Ox4. answers questions appropriately. HEAD: Atraumatic, normocephalic. EYES: Pupils equal round and reactive to light, extraocular movements intact, sclera anicteric, conjunctiva are normal. ENT: Nares patent and without discharge. oropharynx clear without exudates. No tonsilar hypertrophy or erythema. Moist mucous membranes. NECK: Normal range of motion, supple without lymphadenopathy LUNGS: Breath sounds clear to auscultation bilaterally and equal. No wheezes rales or rhonchi. HEART: Regular rate and rhythm without murmurs, rubs, gallops. ABDOMEN: Soft, nontender, nondistended abdomen. No guarding, no rebound. Normal bowel sounds present. No CVA tenderness bilaterally. Musculoskeletal: FROM to passive/active. Strength 5+/5. Extremities: No cyanosis, clubbing, or edema b/l. Peripheral pulses 2+. Capillary refill less than 3 seconds. NEUROLOGICAL: Cranial nerves grossly intact. Normal speech, normal gait. Normal sensory, motor exams PSYCH: Normal mood, normal affect. SKIN: Warm, Dry, normal turgor, no rashes or lesions noted. - INFECTION CONTROL TRAVEL OUTSIDE OF THE [place] IN LAST 30 DAYS: No Course - Re-evaluation Re-evalutation: 11/07/18 Patient is an afebrile, well-hydrated, 23-year-old female who presents the emergency department for medical clearance purposes for detox facility. Vitals are acceptable without significant tachycardia, tachypnea, or hypoxia. PE is otherwise unremarkable. She is nontoxic-appearing and is tolerating p.o. without difficulty. She otherwise appears well and does not appear under the influence of any drugs at this time. Labs and EKG will be performed. Patient elected to receive Rocephin and Zithromax prior to discharge. Patient is going to have facility request information to be faxed to them. Patient is aware that there could be an abnormality in her lab that may get missed this evening if she were to leave. She also is aware that if there is a significant abnormality that she may need to return for further evaluation and treatment. Low suspicion for any other sepsis, meningitis, acute abdomen, or other systemic emergent condition at this time. Patient to recheck with PCM in 3-5 days and go to detox. Return to the ED with any other worsening/concerning symptoms. Patient is in agreement. 11/08/18 02:17 As expected, pt has lab findings consistent with UTI, but pt left already and her phone is off. I have spoken with her mother twice at the [phone] number and she will try to FB msg the patient to call here for her results. I would recommend keflex with a UC pending once we are able to talk to her but med choice per prescriber preference otherwise. - Vital Signs Vital signs: Temp Pulse Resp BP Pulse Ox 98.2 F 70 15 128/71 H 100 11/07/18 22:01 11/07/18 22:01 11/07/18 22:01 11/07/18 22:01 11/07/18 22:01 - Laboratory Result Diagrams: 11/08/18 00:26 11/08/18 00:26 Discharge - Discharge Clinical Impression: Medical clearance for psychiatric admission Condition: Stable Disposition: HOME, SELF-CARE Additional Instructions: You may call in the morning for your labs Healthy diet Avoid drugs Recheck with your PCM in 3-5 days Get yourself into rehab when able Return to the ED with any worsening symptoms and/or development of fever, headache, changes in behavior/mentation/vision/speech, chest pain, palpitations, syncope, shortness of breath, trouble breathing, abdominal pain, n/v/d, blood in stool/urine, loss of control of bowel/bladder, urinary retention, muscle weakness/paralysis, saddle anesthesia, numbness/tingling, or other worsening symptoms that are concerning to you. Forms: Elevated Blood Pressure, Smoking Cessation Education Referrals: KRISSY GRIFFITHS PA-C [Primary Care Provider] - Follow up as needed [facility] [Provider Group] - Follow up as needed [facility] [Provider Group] - Follow up as needed
[2018-11-08 01:20] LABS: ABSOLUTE EOSINOPHILS # (AUTO) 0.2 10^3/uL (0.0-0.6); ABSOLUTE MONOCYTES (AUTO) 0.5 10^3/uL (0.1-1.4); ABSOLUTE NEUT (AUTO) 2.7 10^3/uL (1.7-8.2); BASOPHILS % (AUTO) 0.7 % (0-2); EOSINOPHILS % (AUTO) 2.9 % (0-6); HEMATOCRIT 37.9 % (36.0-47.0); HEMOGLOBIN 13.3 g/dL (12.0-15.5); LYMPHOCYTES % (AUTO) 46.7 % (13-45); MEAN CORPUSCULAR HEMOGLOBIN 31.9 pg (27.0-33.4); MEAN CORPUSCULAR HGB CONC 35.1 g/dL (32.0-36.0); MEAN CORPUSCULAR VOLUME 91 fl (80-97); MONOCYTES % (AUTO) 7.7 % (3-13); PLATELET COUNT 298 10^3/uL (150-450); RED BLOOD COUNT 4.17 10^6/uL (3.72-5.28); RED CELL DISTRIBUTION WIDTH 13.9 % (11.5-14.0); TOTAL CELLS COUNTED % (AUTO) 100 %; WHITE BLOOD COUNT 6.4 10^3/uL (4.0-10.5)
[2018-11-08 01:25] LABS: APPEARANCE,URINE CLOUDY; BILIRUBIN,URINE NEGATIVE (NEGATIVE); COLOR,URINE AMBER; GLUCOSE, URINE NEGATIVE (NEGATIVE); KETONES,URINE NEGATIVE (NEGATIVE); LEUKOCYTE ESTERASE,URINE MODERATE (NEGATIVE); NITRITE,URINE NEGATIVE (NEGATIVE); PROTEIN,URINE 30 mg/dL (NEGATIVE); URINE SPECIFIC GRAVITY 1.026
[2018-11-08 01:34] LABS: BACTERIA (WET MOUNT) 3+ BACTERIA SEEN; EPITHELIALS (WET MOUNT) 3+ EPITHELIALS SEEN; RBCS (WET MOUNT) NO RBCS SEEN; T.VAGINALIS (WET MOUNT) NO TRICHOMONAS SEEN; WBCS (WET MOUNT) 1+ WBCS SEEN; YEAST (WET MOUNT) NO YEAST SEEN
[2018-11-08 01:37] LABS: ACETAMINOPHEN < 10 ug/mL (10-30); ALANINE AMINOTRANSFERASE 26 U/L (9-52); ALBUMIN 3.4 g/dL (3.5-5.0); ALCOHOL < 10 mg/dL (NONE DETECTED); ALKALINE PHOSPHATASE 74 U/L (38-126); ANION GAP 5 (5-19); ASPARTATE AMINO TRANSFERASE 15 U/L (14-36); BILIRUBIN,DIRECT 0.1 mg/dL (0.0-0.4); BILIRUBIN,TOTAL 0.2 mg/dL (0.2-1.3); BLOOD UREA NITROGEN 13 mg/dL (7-20); CALCIUM 9.2 mg/dL (8.4-10.2); CARBON DIOXIDE 31 mmol/L (22-30); CHLORIDE 104 mmol/L (98-107); GLUCOSE 111 mg/dL (75-110); POTASSIUM 3.9 mmol/L (3.6-5.0); SALICYLATE < 1.0 mg/dL (2.0-20.0); SODIUM 140.2 mmol/L (137-145); TOTAL PROTEIN 6.4 g/dL (6.3-8.2)
[2018-11-08 01:38] LABS: URINE BARBITURATES SCREEN NEGATIVE; URINE BENZODIAZEPINES SCREEN UNCONFIRMED POSITIVE; URINE COCAINE SCREEN NEGATIVE; URINE MARIJUANA (THC) SCREEN UNCONFIRMED POSITIVE; URINE METHADONE SCREEN NEGATIVE; URINE PHENCYCLIDINE SCREEN NEGATIVE
[2018-11-08 02:52] LABS: CHLAM PCR NOT DETECTED (NOT DETECT); GON PCR DETECTED (NOT DETECT)
--- NOTE | 2018-11-08 20:50 | EKG REPORT ---
SEVERITY:- OTHERWISE NORMAL ECG - SINUS ARRHYTHMIA, RATE 49-75 : Confirmed by: Samina Murphy MD 08-Nov-2018 20:49:46
== END 2018-11-08 01:48 | disposition home or self-care (01) ==
LOC: ER 21:53
DX: Z00.8 Encounter for other general examination (principal); F19.10 Other psychoactive substance abuse, uncomplicated; F17.200 Nicotine dependence, unspecified, uncomplicated
CPT/HCPCS: 93005; 99283; 96372; 36415; 87086; 87210; 80307 ×4; 84703; 85025; 87088; 80053; 81001; 87186; 87491; 87591; 93010; J3490; J0696

== ENCOUNTER 2020-01-14 13:55 | Emergency (ER) | payer SELFPAY ==
[2020-01-14] MEDS ORDERED: PENICILLIN G BENZATHINE 1.2 MILLION UNIT/2 ML DISP.SYRIN IM ONE (14:58)
[2020-01-14] MEDS ORDERED: DEXAMETHASONE 4 MG TABLET PO ONE (14:59)
--- NOTE | 2020-01-14 15:00 | ER Document Report ---
ED ENT - General Chief Complaint: Sore Throat Stated Complaint: SORE THROAT, SWELLING Time Seen by Provider: 01/14/20 14:46 Notes: CHIEF COMPLAINT: Throat for 2 days HPI: 24-year-old female presenting for sore throat for 2 days no fever no rash. No voice change. Concerned about strep throat as she has a history of frequent strep throat as a child ROS: See HPI - all other systems were reviewed and are otherwise negative Constitutional: no fever Eyes: no drainage, no blurred vision ENT: no runny nose, + sore throat Cardiovascular: no chest pain Resp: no SOB, no cough GI: no vomiting, no diarrhea, no abdominal pain : no dysuria Integumentary: no rash Allergy: no hives Musculoskeletal: no extremity pain or swelling Neurological: no numbness/tingling, no weakness MEDICATIONS: I agree with the patient medications as charted by the RN. ALLERGIES: I agree with the allergies as charted by the RN. PAST MEDICAL HISTORY/PAST SURGICAL HISTORY: Reviewed and agree as charted by RN. SOCIAL HISTORY: Reviewed and agree as charted by RN. FAMILY HISTORY: No significant familial comorbid conditions directly related to patient complaint EXAM: Reviewed vital signs as charted by RN. CONSTITUTIONAL: Alert and oriented and responds appropriately to questions. Well-appearing; well-nourished HEAD: Normocephalic; atraumatic EYES: PERRL; Conjunctivae clear, sclerae non-icteric ENT: normal nose; no rhinorrhea; moist mucous membranes; pharynx noted to have moderate erythema, no uvula edema or deviation, positive tonsillar hypertrophy, phonation normal NECK: Supple without meningismus; non-tender; positive cervical lymphadenopathy, no masses CARD: RRR; no murmurs, no clicks, no rubs, no gallops; symmetric distal pulses RESP: Normal chest excursion without splinting or tachypnea; breath sounds clear and equal bilaterally; no wheezes, no rhonchi, no rales, pulse oximetry 98% on room air not hypoxic ABD/GI: Normal bowel sounds; non-distended; soft, non-tender, no rebound, no guarding; no palpable organomegaly or masses. BACK: The back appears normal and is non-tender to palpation, there is no CVA tenderness EXT: Normal ROM in all joints; no cyanosis, no effusions, no edema SKIN: Normal color for age and race; warm; dry; good turgor; no acute lesions noted NEURO: Moves all extremities equally; Motor and sensory function intact PSYCH: The patient's mood and manner are appropriate. Grooming and personal hygiene are appropriate. MDM: 24-year-old female with sore throat complaint for 2 days, positive strep test. Discussed with the patient she prefers Bicillin injection. We will also give Decadron to help with pain and inflammation TRAVEL OUTSIDE OF THE [place] IN LAST 30 DAYS: No - Related Data Allergies/Adverse Reactions: No Known Allergies Allergy (Verified 04/11/18 17:20) Past Medical History - Social History Smoking Status: Current Every Day Smoker Chew tobacco use (# tins/day): No Frequency of alcohol use: Occasional Drug Abuse: Marijuana, Methamphetamine Family History: Reviewed & Not Pertinent Patient has homicidal ideation: No Neurological Medical History: Reports: Hx Seizures Renal/ Medical History: Denies: Hx Peritoneal Dialysis Psychiatric Medical History: Reports: Hx Anxiety, Hx Depression, Hx Obsessive Compulsive Disorder, Hx Post Traumatic Stress Disorder - Immunizations Hx Diphtheria, Pertussis, Tetanus Vaccination: Yes Physical Exam - Vital signs Vitals: Temp 99.0 F 01/14/20 13:56 Course - Vital Signs Vital signs: Temp Pulse Resp BP Pulse Ox 99.0 F 85 16 133/71 H 98 01/14/20 14:30 01/14/20 14:30 01/14/20 14:30 01/14/20 14:30 01/14/20 14:30 Discharge - Discharge Clinical Impression: Strep pharyngitis Condition: Stable Disposition: HOME, SELF-CARE Additional Instructions: 1. medicines as prescribed 2. take Motrin/Tylenol consistently for pain and fever 3. hydrate well at home with fluids/juices 4. recheck with your PCP for further evaluation and treatment, call for appt. 5. return to the ED for any difficulty swallowing or worsening condition 6. warm salt water gargles for throat discomfort 3 times daily
[2020-01-14 16:42] VITALS: BP 138/62
== END 2020-01-14 16:41 | disposition home or self-care (01) ==
LOC: ER 13:55
DX: J02.0 Streptococcal pharyngitis (principal); F17.200 Nicotine dependence, unspecified, uncomplicated; F12.10 Cannabis abuse, uncomplicated; F15.10 Other stimulant abuse, uncomplicated
CPT/HCPCS: 99283; 96372; 87880; J8540; J0561

== ENCOUNTER 2020-03-18 08:10 | Emergency (ER) | payer SELFPAY ==
[2020-03-18] MEDS ORDERED: LORAZEPAM INJ 2 MG/1 ML VIAL IV ONE (08:22)
[2020-03-18 08:31] LABS: ABSOLUTE BASOPHILS # (AUTO) 0.1 10^3/uL (0.0-0.2); ABSOLUTE EOSINOPHILS # (AUTO) 0.1 10^3/uL (0.0-0.6); ABSOLUTE LYMPHOCYTES (AUTO) 3.5 10^3/uL (0.5-4.7); ABSOLUTE MONOCYTES (AUTO) 0.8 10^3/uL (0.1-1.4); ABSOLUTE NEUT (AUTO) 4.5 10^3/uL (1.7-8.2); BASOPHILS % (AUTO) 0.8 % (0-2); HEMATOCRIT 41.9 % (36.0-47.0); HEMOGLOBIN 14.5 g/dL (12.0-15.5); LYMPHOCYTES % (AUTO) 39.1 % (13-45); MEAN CORPUSCULAR HEMOGLOBIN 32.2 pg (27.0-33.4); MEAN CORPUSCULAR HGB CONC 34.7 g/dL (32.0-36.0); MEAN CORPUSCULAR VOLUME 93 fl (80-97); MONOCYTES % (AUTO) 8.7 % (3-13); PLATELET COUNT 310 10^3/uL (150-450); RED BLOOD COUNT 4.51 10^6/uL (3.72-5.28); RED CELL DISTRIBUTION WIDTH 13.9 % (11.5-14.0); SEGMENTED NEUTROPHILS % (AUTO) 50.4 % (42-78); TOTAL CELLS COUNTED % (AUTO) 100 %
[2020-03-18 08:50] LABS: ALBUMIN 4.6 g/dL (3.5-5.0); ALKALINE PHOSPHATASE 70 U/L (38-126); ANION GAP 6 (5-19); ASPARTATE AMINO TRANSFERASE 20 U/L (14-36); BILIRUBIN,TOTAL 0.9 mg/dL (0.2-1.3); BLOOD UREA NITROGEN 11 mg/dL (7-20); CALCIUM 9.7 mg/dL (8.4-10.2); CARBON DIOXIDE 30 mmol/L (22-30); CHLORIDE 100 mmol/L (98-107); GLUCOSE 123 mg/dL (75-110); POTASSIUM 4.4 mmol/L (3.6-5.0); TOTAL PROTEIN 7.7 g/dL (6.3-8.2)
[2020-03-18 08:55] LABS: ACETAMINOPHEN < 10 ug/mL (10-30); ALCOHOL < 10 mg/dL (NONE DETECTED); SALICYLATE < 1.0 mg/dL (2.0-20.0)
[2020-03-18 12:20] LABS: APPEARANCE,URINE SLIGHTLY-CLOUDY; BILIRUBIN,URINE NEGATIVE (NEGATIVE); COLOR,URINE AMBER; GLUCOSE, URINE NEGATIVE (NEGATIVE); KETONES,URINE TRACE mg/dL (NEGATIVE); LEUKOCYTE ESTERASE,URINE SMALL (NEGATIVE); NITRITE,URINE NEGATIVE (NEGATIVE); PROTEIN,URINE NEGATIVE (NEGATIVE); URINE SPECIFIC GRAVITY 1.028
--- NOTE | 2020-03-18 12:23 | EKG REPORT ---
SEVERITY:- OTHERWISE NORMAL ECG - SINUS TACHYCARDIA : Confirmed by: Carlos Hermosillo MD 18-Mar-2020 12:22:12
[2020-03-18 12:36] LABS: URINE BARBITURATES SCREEN NEGATIVE; URINE BENZODIAZEPINES SCREEN NEGATIVE; URINE COCAINE SCREEN NEGATIVE; URINE METHADONE SCREEN NEGATIVE; URINE PHENCYCLIDINE SCREEN NEGATIVE
[2020-03-18 12:38] LABS: URINE MARIJUANA (THC) SCREEN UNCONFIRMED POSITIVE
--- NOTE | 2020-03-18 14:29 | ER Document Report ---
ED General - General Chief Complaint: Possible Overdose Stated Complaint: POSSIBLE OVERDOSE Time Seen by Provider: 03/18/20 08:22 TRAVEL OUTSIDE OF THE [place] IN LAST 30 DAYS: No - HPI Notes: Patient is a 24-year-old female who presents to the emergency department for evaluation. Her history is obtained throughout the course of her ED stay. In short, the patient admitted to injecting "ice." She was with her boyfriend at the time. She has done this in the past. She states she is interested in getti ng help. She denies any suicidal or homicidal ideation, no visual or auditory hallucination. She denies any pain. She states repeatedly "just help me, my throat is closing" without any other signs of actual pharyngeal edema. She does appear to be having some significant agitation. She is tearful. - Related Data Allergies/Adverse Reactions: No Known Allergies Allergy (Verified 04/11/18 17:20) Home Medications: None Past Medical History - General Information source: Patient - Social History Smoking Status: Current Every Day Smoker Drug Abuse: Marijuana, Methamphetamine Family History: Reviewed & Not Pertinent Neurological Medical History: Reports: Hx Seizures Renal/ Medical History: Denies: Hx Peritoneal Dialysis Psychiatric Medical History: Reports: Hx Anxiety, Hx Depression, Hx Obsessive Compulsive Disorder, Hx Post Traumatic Stress Disorder - Immunizations Hx Diphtheria, Pertussis, Tetanus Vaccination: Yes Review of Systems - Review of Systems EENT: See HPI Neurological/Psychological: See HPI -: Yes All other systems reviewed and negative Physical Exam - Vital signs Vitals: Pulse Resp BP Pulse Ox 92 12 148/108 H 97 03/18/20 08:17 03/18/20 08:17 03/18/20 08:17 03/18/20 08:17 - Notes Notes: On initial exam, patient is tearful, screaming out intermittently, in a moderate amount of distress. She is agitated, but is able to be redirected by this physician. Vital signs reviewed, please refer to chart. Head is normocephalic, atraumatic. Pupils equal round, reactive to light. Oral mucosa is moist. Pharynx is without erythema or exudate. Uvula is normal, midline. Neck is supple without meningismus. Heart is regular rate and rhythm. Lungs are clear to auscultation bilaterally. Abdomen is soft, nontender, normoactive bowel sounds throughout. Extremities without cyanosis, clubbing. Posterior calves are nontender. Peripheral pulses are equal. Skin is warm and dry. Patient is awake, alert, moves all 4 extremity spontaneously. No gross facial asymmetry. Course - Re-evaluation Re-evalutation: 03/18/20 14:26 Patient presented to the emergency department for evaluation after injecting methamphetamine. She was markedly agitated upon arrival. She was administered Ativan 2 mg IV. The patient slept intermittently throughout the remainder of her stay. Laboratory investigations were remarkable only for positive drug screen. Patient's vital signs remained stable throughout the course of her stay. The patient states she does want help, but she denies that this was a suicide attempt. She denies being suicidal or homicidal, she denies any visual or auditory hallucinations. I think that referral for outpatient treatment of substance abuse is appropriate at this time. Otherwise, patient wishes to be discharged into the custody of her boyfriend. She is to return to the emergency department for worsening or new concerning symptoms of any sort. - Vital Signs Vital signs: Temp Pulse Resp BP Pulse Ox 92 13 101/67 97 03/18/20 08:17 03/18/20 14:01 03/18/20 14:01 03/18/20 14:01 - Laboratory Result Diagrams: 03/18/20 08:23 03/18/20 08:23 Laboratory results interpreted by me: 03/18/20 03/18/20 08:23 11:45 Sodium 136.3 L Glucose 123 H Urine Ketones TRACE H Urine Urobilinogen 2.0 H Ur Leukocyte Esterase SMALL H Salicylates < 1.0 L Acetaminophen < 10 L - EKG Interpretation by Me Additional EKG results interpreted by me: 03/18/20 14:27 Sinus tachycardia with a rate of 113 bpm. Normal axis and intervals. No acute ST changes concerning for ischemia or infarction. Discharge - Discharge Clinical Impression: Amphetamine abuse Condition: Stable Disposition: HOME, SELF-CARE Instructions: Ampetamine Abuse ([facility], 1928–1983) Additional Instructions: You are medically cleared. Please stop abusing illegal drugs. He can follow-up with any other referral centers to treat substance abuse. If you develop worsening or new concerning symptoms of any sort, return immediately to the emergency department for evaluation. Otherwise, follow-up with primary care.
[2020-03-18 15:23] VITALS: BP 119/74
== END 2020-03-18 15:23 | disposition home or self-care (01) ==
LOC: ER 08:10
DX: F19.10 Other psychoactive substance abuse, uncomplicated (principal); R45.1 Restlessness and agitation; R00.0 Tachycardia, unspecified; F17.200 Nicotine dependence, unspecified, uncomplicated
CPT/HCPCS: 93005; 99284; 51701; 96374; 36415; 80307 ×4; 84703; 85025; 80053; 81001; 93010; J2060

== ENCOUNTER → 2020-07-02 | Outpatient (CLI) | payer MEDICAID ==
--- NOTE | 2020-07-02 16:34 | RADIOLOGY REPORT (SQ) ---
EXAM DESCRIPTION: U/S [id number] TRNABD 1GES W/ODOP IMAGES COMPLETED DATE/TIME: 07/02/2020 4:24 pm REASON FOR STUDY: Z34.90 ENCNTR FOR SUPRVSN OF NORMAL , UNSP, UNSP TRIMESTER Z34.90 ENCNTR FOR SUPRVSN OF NORMAL , UNSP, UNSP TR COMPARISON: None. TECHNIQUE: Transabdominal static and realtime grayscale images acquired of the pelvis. Additional se lected spectral and color Doppler images recorded. All images stored on PACs. bHCG: Not available. CLINICAL DATES: 12 weeks 1 day. LIMITATIONS: None. FINDINGS: FETUS: Single Living intrauterine . ULTRASOUND EGA: 7 week 0 days. ULTRASOUND SANJEEV: 02/18/2021 EFW: Not applicable less than 20 weeks. CRL: Visualized. FHR: 155 beats per minute. SURVEY: Too early to assess. AMNIOTIC FLUID: Adequate amount. PLACENTA: Not yet developed due to early gestation. SUBCHORIONIC BLEED: No. SIZE OF BLEED: Not applicable. UTERUS: No masses. No anomalies. CERVICAL LENGTH: 3.4 cm. Closed. RIGHT ADNEXA: Ovary not identified due to poor acoustical window. No adnexal free fluid. No adnexal masses. LEFT ADNEXA: Ovary not identified due to poor acoustical window. No adnexal free fluid. No adnexal masses. FREE FLUID: None. OTHER: No other significant finding. IMPRESSION: LIVING INTRAUTERINE . EGA 7 WEEK 0 DAYS. Trimester of : First trimester - 0 to 13 weeks. TECHNICAL DOCUMENTATION: JOB ID: [id number] 2010 [employer]- All Rights Reserved rev Reading location - IP/workstation name: [email or web address]
== END ==
LOC: RAD 15:37
PROVIDERS: ATTEND Midwife
DX: Z34.91 Encounter for supervision of normal pregnancy, unspecified, first trimester (principal); Z3A.01 Less than 8 weeks gestation of pregnancy
CPT/HCPCS: 76801

== ENCOUNTER 2020-07-05 13:50 | Emergency (ER) | payer MEDICAID ==
--- NOTE | 2020-07-05 15:55 | ER Document Report ---
ED General - General Chief Complaint: Sore Throat Stated Complaint: SORE THROAT,EAR PAIN Time Seen by Provider: 07/05/20 15:13 Primary Care Provider: FABIOLA GREEN CNM [Primary Care Provider] - Follow up as needed TRAVEL OUTSIDE OF THE [place] IN LAST 30 DAYS: No - HPI Notes: Patient is a 25-year-old female who is 7 weeks and presents with sore throat and bilateral ear pain for the past 2 days. She denies fever, chest pain, shortness of breath, nausea, vomiting, and diarrhea. She is not taking any medication for relief. She denies any complications with this . She denies any vaginal bleeding or any other symptoms. - Related Data Allergies/Adverse Reactions: No Known Allergies Allergy (Verified 07/05/20 15:10) Past Medical History - General Information source: Patient - Social History Smoking Status: Current Every Day Smoker Family History: Reviewed & Not Pertinent Patient has homicidal ideation: No Neurological Medical History: Reports: Hx Seizures Renal/ Medical History: Denies: Hx Peritoneal Dialysis Psychiatric Medical History: Reports: Hx Anxiety, Hx Depression, Hx Obsessive Compulsive Disorder, Hx Post Traumatic Stress Disorder - Immunizations Hx Diphtheria, Pertussis, Tetanus Vaccination: Yes Review of Systems - Review of Systems Constitutional: No symptoms reported EENT: See HPI Cardiovascular: No symptoms reported Respiratory: No symptoms reported Gastrointestinal: No symptoms reported Genitourinary: No symptoms reported Female Genitourinary: No symptoms reported Musculoskeletal: No symptoms reported Skin: No symptoms reported Hematologic/Lymphatic: No symptoms reported Neurological/Psychological: No symptoms reported Physical Exam - Vital signs Vitals: Temp Pulse Resp BP Pulse Ox 98.1 F 86 18 128/68 H 100 07/05/20 14:06 07/05/20 14:06 07/05/20 14:06 07/05/20 14:06 07/05/20 14:06 - Notes Notes: PHYSICAL EXAMINATION: VITALS: Vitals reviewed and within normal limits. GENERAL: Well-appearing, well-nourished and in no acute distress. HEAD: Atraumatic, normocephalic. ENT: Nares patent. Moist mucous membranes. Right tonsillar hypertrophy without exudates. No uvula deviation. TMs clear bilaterally with no bulging or effusion. NECK: Right anterior cervical chain lymphadenopathy. Full range of motion. Supple neck with no meningeal signs. LUNGS: Breath sounds clear to auscultation bilaterally and equal. No wheezes, rales, or rhonchi. HEART: Regular, rate, and rhythm without murmurs. EXTREMITIES: Normal range of motion, no pitting or edema. No cyanosis. NEUROLOGICAL: No focal neurological deficits. Moves all extremities spontan eously and on command. PSYCH: Normal mood, normal affect. SKIN: Warm, Dry, normal turgor, no rashes or lesions noted. Course - Re-evaluation Re-evalutation: Patient is a 25-year-old female who presents with sore throat and bilateral ear pain that began 2 days ago. Patient is afebrile and vitals are normal. On exam, right tonsillar hypertrophy with right anterior cervical chain lymphadenopathy. TMs clear bilaterally with no bulging or effusion noted. Rapid strep and flu both negative. However, since the strep swab only test for group A strep and patient is currently and has significant exam findings, I will treat her with amoxicillin. Patient instructed to take Tylenol as needed for pain. Return precautions and follow-up instructions given. Patient advised to follow-up with her OB and inform them of this ER visit. Patient understands and is in agreement with the plan. Patient will be discharged home. - Vital Signs Vital signs: Temp Pulse Resp BP Pulse Ox 98.2 F 68 17 132/78 H 99 07/05/20 16:19 07/05/20 16:19 07/05/20 16:19 07/05/20 16:19 07/05/20 16:19 Discharge - Discharge Clinical Impression: Pharyngitis Qualifiers: Pharyngitis/tonsillitis etiology: unspecified etiology Qualified Code(s): J02.9 - Acute pharyngitis, unspecified Condition: Stable Disposition: HOME, SELF-CARE Instructions: Sore Throat ([facility]) Prescriptions: Amoxicillin 1 tab PO BID 10 Days #20 tab Forms: Return to Work Referrals: FABIOLA GREEN CNM [Primary Care Provider] - Follow up as needed
[2020-07-05 15:58] LABS: A TYPE INFLUENZA AG NEGATIVE (NEGATIVE); B INFLUENZA AG NEGATIVE (NEGATIVE)
[2020-07-05 16:20] VITALS: BP 132/78
== END 2020-07-05 16:21 | disposition home or self-care (01) ==
LOC: ER 13:50
DX: O26.91 Pregnancy related conditions, unspecified, first trimester (principal); J02.9 Acute pharyngitis, unspecified; H92.03 Otalgia, bilateral; O99.331 Smoking (tobacco) complicating pregnancy, first trimester; Z3A.01 Less than 8 weeks gestation of pregnancy
CPT/HCPCS: 87070; 87077; 87804; 87880; 99283